=== PATIENT | male | born 1950 | race Caucasian/White ===

== ENCOUNTER 2023-02-14 08:48 | Emergency (ER) | payer BC, MEDICARE, OTHER ==
[~2023-02-14] VITALS: Ht 177.8 cm; Wt 90.9 kg
[2023-02-14] MEDS ORDERED: MORPHINE 4 MG/ML 1ML VIAL IV PRN (09:10)
[2023-02-14] MEDS ORDERED: diazePAM 10MG/2ML SYRINGE IV ONE (09:10)
[2023-02-14] MEDS ORDERED: CLOP75TA99 PO (09:33)
[2023-02-14] MEDS ORDERED: ASPI81CH33 PO (09:33)
[2023-02-14 09:41] LABS: BASO % 0.3 % (0.0-1.0); EOS % 0.3 % (0.0-3.0); HEMATOCRIT 40.2 % (42.0-52.0); HEMOGLOBIN 13.9 g/dl (13.5-17.5); LYMPH # 0.6 10^3/uL (1.5-5.0); MEAN CORPUSCULAR HEMOGLOBIN 40.1 pg (27.0-33.0); MEAN CORPUSCULAR HGB CONC 34.6 g/dl (32.0-36.5); MONO # 0.6 10^3/uL (0.0-0.8); MONO % 15.7 % (2.0-8.0); NEUTROPHILS # 2.7 10^3/uL (1.5-8.5); NEUTROPHILS % 68.2 % (36.0-66.0); PLATELET COUNT, AUTOMATED 130 10^3/uL (150-450); RED BLOOD COUNT 3.47 10^6/uL (4.30-6.10); WHITE BLOOD COUNT 3.9 10^3/uL (4.0-10.0)
[2023-02-14 09:42] LABS: MEAN CORPUSCULAR VOLUME 115.9 fl (80.0-96.0)
[2023-02-14] MEDS ORDERED: OMEP-173 PO (09:46)
[2023-02-14] MEDS ORDERED: SIMV40TA20 PO (09:46)
[2023-02-14] MEDS ORDERED: IRBE150T7 PO (09:46)
[2023-02-14 09:56] LABS: PLATELET ESTIMATE DECREASED (NORMAL); POLYCHROMASIA 1+
[2023-02-14 09:58] LABS: OVALOCYTES 1+; TEAR DROP CELLS 1+
[2023-02-14 10:02] LABS: LIPASE 32 U/L (12-53)
[2023-02-14 10:05] LABS: ALBUMIN 3.9 G/DL (3.2-5.2); ALKALINE PHOSPHATASE 73 U/L (46-116); ALT/SGPT 30 U/L (7.0-40); AST/SGOT 20 U/L (<34); BILIRUBIN,DIRECT 0.9 MG/DL (<0.4); BILIRUBIN,TOTAL 2.5 MG/DL (0.3-1.2); BLOOD UREA NITROGEN 20 MG/DL (9-23); CALCIUM LEVEL 8.6 MG/DL (8.3-10.6); CARBON DIOXIDE LEVEL 28 MMOL/L (20-31); CHLORIDE LEVEL 108 MMOL/L (98-107); CREATININE FOR GFR 0.77 MG/DL (0.70-1.30); GLOMERULAR FILTRATION RATE > 60.0 (>42); GLUCOSE, FASTING 100 MG/DL (74-106); POTASSIUM SERUM 4.3 MMOL/L (3.5-5.1); SODIUM LEVEL 142 MMOL/L (136-145); TOTAL PROTEIN 6.7 G/DL (5.7-8.2)
[2023-02-14] MEDS ORDERED: MORPHINE 30 MG TAB **MSIR PO ONE (11:50)
[2023-02-14] MEDS ORDERED: MORP15TA2 PO ×2 (12:07→12:27)
[2023-02-14 12:24] VITALS: BP 126/80; TEMP 97.5; O2SAT 97
== END 2023-02-14 12:32 | disposition home or self-care (01) ==
LOC: M ED 08:48 → EDBD 08:48 → M ED 12:32
DX: M51.17 Intervertebral disc disorders with radiculopathy, lumbosacral region (principal); M48.07 Spinal stenosis, lumbosacral region; I10 Essential (primary) hypertension; E78.5 Hyperlipidemia, unspecified; Z88.6 Allergy status to analgesic agent; Z88.5 Allergy status to narcotic agent; Z88.8 Allergy status to other drugs, medicaments and biological substances
CPT/HCPCS: 74176; 80048; 80076; 83690; 85025; 93041; 94760; 96374; 96375; 99285; J3360

== ENCOUNTER 2024-01-22 17:28 | Inpatient (IN) | payer MEDICARE, BC ==
[~2024-01-22] VITALS: Ht 177.8 cm; Wt 88.7 kg
[~2024-01-22 17:28] MED LIST: ASPI81CH33 PO; CLOP75TA99 PO; IRBE150T27 PO; MORP15TA2 PO; OMEP-173 PO; SIMV40TA20 PO
[2024-01-22 20:08] LABS: BASO % 0.2 % (0.0-1.0); EOS % 0.4 % (0.0-3.0); HEMATOCRIT 46.5 % (42.0-52.0); HEMOGLOBIN 16.1 g/dl (13.5-17.5); LYMPH # 1.2 10^3/uL (1.5-5.0); LYMPH % 24.4 % (24.0-44.0); MEAN CORPUSCULAR HEMOGLOBIN 39.2 pg (27.0-33.0); MEAN CORPUSCULAR HGB CONC 34.6 g/dl (32.0-36.5); MEAN CORPUSCULAR VOLUME 113.1 fl (80.0-96.0); MONO % 20.6 % (2.0-8.0); NEUTROPHILS # 2.6 10^3/uL (1.5-8.5); NEUTROPHILS % 54.2 % (36.0-66.0); PLATELET COUNT, AUTOMATED 148 10^3/uL (150-450); RED BLOOD COUNT 4.11 10^6/uL (4.30-6.10); WHITE BLOOD COUNT 4.8 10^3/uL (4.0-10.0)
[2024-01-22 20:34] LABS: LIPASE 38 U/L (12-53)
[2024-01-22 20:36] LABS: ALBUMIN 4.4 G/DL (3.2-5.2); ALKALINE PHOSPHATASE 69 U/L (46-116); ALT/SGPT 34 U/L (7.0-40); AST/SGOT 23 U/L (<34); BILIRUBIN,DIRECT 0.8 MG/DL (<0.4); BILIRUBIN,TOTAL 2.7 MG/DL (0.3-1.2); BLOOD UREA NITROGEN 22 MG/DL (9-23); CALCIUM LEVEL 9.1 MG/DL (8.3-10.6); CARBON DIOXIDE LEVEL 28 MMOL/L (20-31); CHLORIDE LEVEL 108 MMOL/L (98-107); CREATININE FOR GFR 0.84 MG/DL (0.70-1.30); GLOMERULAR FILTRATION RATE > 60.0 (>42); GLUCOSE, FASTING 93 MG/DL (74-106); POTASSIUM SERUM 4.2 MMOL/L (3.5-5.1); SODIUM LEVEL 141 MMOL/L (136-145); TOTAL PROTEIN 7.8 G/DL (5.7-8.2)
[2024-01-22] MEDS ORDERED: ISOVUE-370 76% 100ML VIAL As Ordered ONE (20:47)
[2024-01-22] MEDS: SUCRALFATE 1 GM TAB PO ONE (22:05)
[2024-01-22 22:28] LABS: CPK CREATINE PHOSPHOKINASE 129 U/L (46-171)
[2024-01-22 22:51] LABS: CK-MB VALUE MASS 1.7 NG/ML (<3.6); MB/CK RELATIVE INDEX 1.31 (< OR =4)
[2024-01-22] MEDS ORDERED: HYDR500C3 PO (23:51)
[2024-01-22] MEDS ORDERED: DEXL60CA13 PO (23:51)
[2024-01-22] MEDS ORDERED: HOME MED LIST COMPLETE! XX SCH (23:55)
[2024-01-23] MEDS: PIPERACILLIN/TAZOBACTAM SOD 4.5 GM in D5W MINI-BAG PLUS 50 ML IV ONE (00:48)
[2024-01-23] MEDS: FIDAXOMICIN 200 MG TAB (DIFICID) PO SCH ×2 (02:52→20:50)
[2024-01-23] MEDS: metroNIDAZOLE 500 MG in IV 1 EA IV SCH (02:53)
[2024-01-23 04:10] VITALS: BP 127/92; TEMP 97.2; O2SAT 97
[2024-01-23] MEDS: traMADol 50 MG TAB PO PRN (05:17)
[2024-01-23] MEDS: CIPROFLOXACIN 200 MG in IV 1 EA IV SCH (05:44)
[2024-01-23 06:28] LABS: HEMOGLOBIN 14.9 g/dl (13.5-17.5); MEAN CORPUSCULAR HEMOGLOBIN 39.4 pg (27.0-33.0); MEAN CORPUSCULAR HGB CONC 34.7 g/dl (32.0-36.5); MEAN CORPUSCULAR VOLUME 113.8 fl (80.0-96.0); PLATELET COUNT, AUTOMATED 133 10^3/uL (150-450); RED BLOOD COUNT 3.78 10^6/uL (4.30-6.10); WHITE BLOOD COUNT 3.6 10^3/uL (4.0-10.0)
[2024-01-23 06:50] LABS: ALBUMIN 3.8 G/DL (3.2-5.2); ALKALINE PHOSPHATASE 60 U/L (46-116); ALT/SGPT 29 U/L (7.0-40); AST/SGOT 21 U/L (<34); BILIRUBIN,TOTAL 2.8 MG/DL (0.3-1.2); BLOOD UREA NITROGEN 20 MG/DL (9-23); CALCIUM LEVEL 8.3 MG/DL (8.3-10.6); CARBON DIOXIDE LEVEL 27 MMOL/L (20-31); CHLORIDE LEVEL 107 MMOL/L (98-107); CREATININE FOR GFR 0.82 MG/DL (0.70-1.30); GLOMERULAR FILTRATION RATE > 60.0 (>42); GLUCOSE, FASTING 89 MG/DL (74-106); POTASSIUM SERUM 3.8 MMOL/L (3.5-5.1); SODIUM LEVEL 139 MMOL/L (136-145); TOTAL PROTEIN 6.5 G/DL (5.7-8.2)
[2024-01-23] MEDS: VANCOMYCIN 125MG CAPSULE PO SCH (08:59)
[2024-01-23] MEDS ORDERED: ENOXAPARIN 40MG/0.4ML SYRINGE (J1650 PER 10MG) SC SCH (09:00)
[2024-01-23] MEDS: ENOXAPARIN 40MG/0.4ML SYRINGE (J1650 PER 10MG) SC SCH (09:00)
[2024-01-23] MEDS ORDERED: FIDAXOMICIN 200 MG TAB (DIFICID) PO SCH (09:00)
[2024-01-23] MEDS: CLOPIDOGREL 75 MG TAB PO SCH (09:01)
[2024-01-23] MEDS: SIMVASTATIN 40 MG TAB PO SCH (09:01)
[2024-01-23] MEDS: HYDROXYUREA 500 MG CAP PO SCH (09:02)
[2024-01-23] MEDS: ASPIRIN 81MG CHEW TABLET PO SCH (09:02)
[2024-01-23] MEDS: IRBESARTAN 150MG TAB PO SCH (09:06)
[2024-01-23 12:00] VITALS: BP 113/76; TEMP 97.7; O2SAT 95
[2024-01-23] MEDS: LACTOBACILLUS ACIDOPHILUS CAP (BACID) PO SCH (18:25)
[2024-01-23 20:00] VITALS: TEMP 98.2; O2SAT 94
[2024-01-24 04:00] VITALS: BP 125/85; TEMP 97.5; O2SAT 94
[2024-01-24 06:08] LABS: HEMATOCRIT 41.1 % (42.0-52.0); HEMOGLOBIN 14.3 g/dl (13.5-17.5); MEAN CORPUSCULAR HEMOGLOBIN 39.7 pg (27.0-33.0); MEAN CORPUSCULAR HGB CONC 34.8 g/dl (32.0-36.5); PLATELET COUNT, AUTOMATED 127 10^3/uL (150-450); WHITE BLOOD COUNT 3.6 10^3/uL (4.0-10.0)
[2024-01-24 06:12] LABS: MEAN CORPUSCULAR VOLUME 114.2 fl (80.0-96.0)
[2024-01-24 06:42] LABS: ALBUMIN 3.4 G/DL (3.2-5.2); ALKALINE PHOSPHATASE 57 U/L (46-116); ALT/SGPT 25 U/L (7.0-40); AST/SGOT 14 U/L (<34); BILIRUBIN,TOTAL 1.5 MG/DL (0.3-1.2); BLOOD UREA NITROGEN 21 MG/DL (9-23); CALCIUM LEVEL 8.2 MG/DL (8.3-10.6); CARBON DIOXIDE LEVEL 25 MMOL/L (20-31); CHLORIDE LEVEL 113 MMOL/L (98-107); CREATININE FOR GFR 0.83 MG/DL (0.70-1.30); GLOMERULAR FILTRATION RATE > 60.0 (>42); GLUCOSE, FASTING 103 MG/DL (74-106); POTASSIUM SERUM 4.1 MMOL/L (3.5-5.1); SODIUM LEVEL 142 MMOL/L (136-145); TOTAL PROTEIN 6.1 G/DL (5.7-8.2)
[2024-01-24 12:00] VITALS: BP 140/92; TEMP 97.9; O2SAT 98
[2024-01-24 19:43] VITALS: BP 140/88; TEMP 97.9; O2SAT 97
[2024-01-25 04:31] VITALS: BP 134/89; TEMP 97.3; O2SAT 95
[2024-01-25 06:01] LABS: HEMATOCRIT 43.5 % (42.0-52.0); HEMOGLOBIN 14.9 g/dl (13.5-17.5); MEAN CORPUSCULAR HEMOGLOBIN 38.6 pg (27.0-33.0); MEAN CORPUSCULAR HGB CONC 34.3 g/dl (32.0-36.5); MEAN CORPUSCULAR VOLUME 112.7 fl (80.0-96.0); PLATELET COUNT, AUTOMATED 132 10^3/uL (150-450); RED BLOOD COUNT 3.86 10^6/uL (4.30-6.10); WHITE BLOOD COUNT 4.2 10^3/uL (4.0-10.0)
[2024-01-25 06:23] LABS: ALBUMIN 3.7 G/DL (3.2-5.2); ALKALINE PHOSPHATASE 60 U/L (46-116); ALT/SGPT 31 U/L (7.0-40); AST/SGOT 20 U/L (<34); BILIRUBIN,TOTAL 2.1 MG/DL (0.3-1.2); BLOOD UREA NITROGEN 14 MG/DL (9-23); CALCIUM LEVEL 8.5 MG/DL (8.3-10.6); CARBON DIOXIDE LEVEL 25 MMOL/L (20-31); CHLORIDE LEVEL 109 MMOL/L (98-107); CREATININE FOR GFR 0.87 MG/DL (0.70-1.30); GLOMERULAR FILTRATION RATE > 60.0 (>42); GLUCOSE, FASTING 86 MG/DL (74-106); SODIUM LEVEL 139 MMOL/L (136-145); TOTAL PROTEIN 6.3 G/DL (5.7-8.2)
[2024-01-25 08:13] VITALS: BP 130/97; TEMP 97.5; O2SAT 96
[2024-01-25 08:34] VITALS: BP 130/87; TEMP 97.5
[2024-01-25 12:00] VITALS: BP 138/93; TEMP 97.9; O2SAT 97
[2024-01-25 14:35] VITALS: BP 140/93; TEMP 97.5; O2SAT 97
[2024-01-25 20:00] VITALS: BP 153/98; TEMP 97.5; O2SAT 93
[2024-01-26 07:25] LABS: HEMATOCRIT 44.8 % (42.0-52.0); HEMOGLOBIN 15.6 g/dl (13.5-17.5); MEAN CORPUSCULAR HEMOGLOBIN 39.2 pg (27.0-33.0); MEAN CORPUSCULAR HGB CONC 34.8 g/dl (32.0-36.5); MEAN CORPUSCULAR VOLUME 112.6 fl (80.0-96.0); PLATELET COUNT, AUTOMATED 150 10^3/uL (150-450); RED BLOOD COUNT 3.98 10^6/uL (4.30-6.10); WHITE BLOOD COUNT 3.8 10^3/uL (4.0-10.0)
[2024-01-26 07:56] LABS: ALBUMIN 3.8 G/DL (3.2-5.2); ALKALINE PHOSPHATASE 62 U/L (46-116); ALT/SGPT 47 U/L (7.0-40); AST/SGOT 39 U/L (<34); BILIRUBIN,TOTAL 2.6 MG/DL (0.3-1.2); BLOOD UREA NITROGEN 15 MG/DL (9-23); CARBON DIOXIDE LEVEL 27 MMOL/L (20-31); CHLORIDE LEVEL 109 MMOL/L (98-107); CREATININE FOR GFR 0.84 MG/DL (0.70-1.30); GLOMERULAR FILTRATION RATE > 60.0 (>42); GLUCOSE, FASTING 91 MG/DL (74-106); POTASSIUM SERUM 4.3 MMOL/L (3.5-5.1); SODIUM LEVEL 142 MMOL/L (136-145); TOTAL PROTEIN 6.6 G/DL (5.7-8.2)
[2024-01-26 08:45] VITALS: BP 151/92
[2024-01-26] MEDS ORDERED: DIFI200T PO (12:53)
[2024-01-26] MEDS ORDERED: META28.32 PO (14:15)
[2024-01-26] MEDS ORDERED: RISATAB3 PO (14:15)
== END 2024-01-26 16:56 | disposition home or self-care (01) | DRG 372 ==
LOC: M ED 17:28 → M ED INP 01-23 01:33 → M MSPAV 01-23 03:57
PROVIDERS: ADMIT Student in an Organized Health Care Education/Training Program; ATTEND Internal Medicine Nephrology
DX: A04.71 Enterocolitis due to Clostridium difficile, recurrent (principal); K57.32 Diverticulitis of large intestine without perforation or abscess without bleeding; E78.5 Hyperlipidemia, unspecified; I10 Essential (primary) hypertension; G62.9 Polyneuropathy, unspecified; H91.93 Unspecified hearing loss, bilateral; G89.29 Other chronic pain; E73.9 Lactose intolerance, unspecified; M54.9 Dorsalgia, unspecified; I25.10 Atherosclerotic heart disease of native coronary artery without angina pectoris; D45 Polycythemia vera; I25.2 Old myocardial infarction; Z79.82 Long term (current) use of aspirin; Z79.899 Other long term (current) drug therapy; Z88.5 Allergy status to narcotic agent; Z88.6 Allergy status to analgesic agent; Z88.8 Allergy status to other drugs, medicaments and biological substances; Z79.02 Long term (current) use of antithrombotics/antiplatelets

== ENCOUNTER 2024-01-26 16:57 | Outpatient (CLI) | payer MEDICARE, BC ==
[~2024-01-26 16:57] MED LIST changes: +DEXL60CA13 PO; +DIFI200T PO; +HYDR500C3 PO; +META28.32 PO; +RISATAB3 PO
[2024-01-26] MEDS: NS IV ONE (18:17)
[2024-01-26] MEDS: BEZLOTOXUMAB IV ONE (18:17)
== END 2024-01-26 19:56 | disposition home or self-care (01) ==
LOC: M OPCLI4PV 16:57 → M MSPAV 17:17 → M OPCLI4PV 19:56
PROVIDERS: ATTEND Internal Medicine Nephrology
DX: A04.71 Enterocolitis due to Clostridium difficile, recurrent (principal); Z88.6 Allergy status to analgesic agent; Z88.5 Allergy status to narcotic agent; Z88.8 Allergy status to other drugs, medicaments and biological substances
CPT/HCPCS: 96365; J0565